=== PATIENT | male | born 1980 | race Two or more races ===

== ENCOUNTER 2019-02-17 11:31 | Emergency (ER) | payer OTHER ==
[~2019-02-17] VITALS: Ht 167.6 cm; Wt 86.2 kg
[2019-02-17 11:41] VITALS: BP 117/78
== END 2019-02-17 12:32 | disposition home or self-care (01) ==
LOC: ER 11:31
DX: S80.12XA Contusion of left lower leg, initial encounter (principal); W23.0XXA Caught, crushed, jammed, or pinched between moving objects, initial encounter; Y93.89 Activity, other specified; Y99.8 Other external cause status; Y92.89 Other specified places as the place of occurrence of the external cause
CPT/HCPCS: 93971

== ENCOUNTER 2019-04-18 17:14 | Inpatient (IN) | payer BC ==
[~2019-04-18] VITALS: Ht 165.1 cm; Wt 79.7 kg
[2019-04-18] MEDS ORDERED: SODIUM CHLORIDE 0.9% 500 ML IVB ONE (18:30)
[2019-04-18] MEDS ORDERED: PANTOPRAZOLE 40 MG/10 ML VIAL INJ IV STA (18:30)
[2019-04-18] MEDS ORDERED: ONDANSETRON HCL 4 MG/2 ML VIAL IV ONE (18:30)
[2019-04-18 18:31] LABS: Urine Bacteria NONE SEEN /hpf (None Seen); Urine Blood Negative /uL (Negative); Urine Mucus MODERATE (None Seen); Urine Specific Gravity 1.031 (1.001-1.035); Urine WBC 2 /hpf (0 - 3)
[2019-04-18 18:33] LABS: Basophils # (auto) 0 uL; Basophils % (auto) 0.4 % (0.0-2.0); Eosinophils # (auto) 0.3 uL; Eosinophils % (auto) 3.9 % (0.0-7.0); Hematocrit 50.3 % (41.0-53.0); Hemoglobin 17.3 g/dL (13.5-17.5); Lymphocytes # (auto) 1.2 uL; Lymphocytes % (auto) 15.3 % (10.0-50.0); Mean Corpuscular Hgb Conc. 34.3 g/dL (32.0-36.0); Mean Corpuscular Volume 84.5 fL (80.0-100.0); Monocytes % (auto) 12.4 % (0.0-12.0); Neutrophils # (auto) 5.5 uL; Nucleated Red Blood Cells % 0.1 %; Platelet Count (auto) 269 10^3/uL (140-450); Red Blood Cells 5.95 10^6/uL (4.5-5.90); Red Cell Distribution Width 13.2 % (11.8-14.3); White Blood Cell 8.1 10^3/uL (4.4-10.8)
[2019-04-18 18:55] LABS: Albumin 3.9 g/dL (3.4-5.0); Calcium 8.5 mg/dL (8.5-10.1)
[2019-04-18 18:58] LABS: BUN/Creatinine Ratio 15.9; Bilirubin, Total 0.5 mg/dL (0.2-1.0); Total Protein 8.2 g/dL (6.4-8.2)
[2019-04-18] MEDS ORDERED: metroNIDAZOLE 500MG/100ML 100 ML IV ONE (19:30)
[2019-04-18] MEDS ORDERED: MORPHINE SULFATE 4 MG/ML SYR/VIAL IV ONE (19:30)
[2019-04-18] MEDS ORDERED: ONDANSETRON HCL 4 MG/2 ML VIAL IV PRN (22:00)
[2019-04-18] MEDS ORDERED: TEMAZEPAM 15 MG CAP PO PRN (22:00)
[2019-04-18] MEDS ORDERED: MORPHINE SULFATE 4 MG/ML SYR/VIAL IV PRN (22:00)
[2019-04-18] MEDS ORDERED: ACETAMINOPHEN 325 MG TAB PO PRN (22:00)
[2019-04-18] MEDS ORDERED: HYDROcodone-ACET 5/325MG TAB PO PRN (22:00)
[2019-04-18] MEDS: metroNIDAZOLE 500MG/100ML 100 ML IV SCH (22:36)
[2019-04-18] MEDS: FAMOTIDINE 20 MG TAB PO SCH (22:36)
[2019-04-19 02:30] VITALS: BP 118/78
--- NOTE | 2019-04-19 02:30 | NUR ---
MS admit from ER SUDHIR OCASIO admitted to tele/MS after SBAR received. Patient oriented to Meme Amin, primary RN, unit, room, bed, and unit policies regarding patient care and visiting hours. Patient weighed by bedscale and encouraged to call if they need something. All questions and concerns addressed, patient verbalized understanding. Note:
[2019-04-19 05:00] VITALS: BP 117/71
[2019-04-19] MEDS: metroNIDAZOLE 500MG/100ML 100 ML IV SCH ×3 (05:30→21:46)
[2019-04-19 06:57] LABS: Basophils # (auto) 0 uL; Basophils % (auto) 0.5 % (0.0-2.0); Eosinophils # (auto) 0.4 uL; Eosinophils % (auto) 5.1 % (0.0-7.0); Hematocrit 42.2 % (41.0-53.0); Hemoglobin 14.2 g/dL (13.5-17.5); Lymphocytes # (auto) 2.1 uL; Lymphocytes % (auto) 29.7 % (10.0-50.0); Mean Corpuscular Hemoglobin 28.5 pg (28.0-32.0); Mean Corpuscular Hgb Conc. 33.6 g/dL (32.0-36.0); Mean Corpuscular Volume 84.9 fL (80.0-100.0); Monocytes # (auto) 0.8 uL; Monocytes % (auto) 12.1 % (0.0-12.0); Neutrophils # (auto) 3.6 uL; Neutrophils % (auto) 52.6 % (37.0-80.0); Nucleated Red Blood Cells % 0.1 %; Platelet Count (auto) 238 10^3/uL (140-450); Red Blood Cells 4.97 10^6/uL (4.5-5.90); White Blood Cell 6.9 10^3/uL (4.4-10.8)
[2019-04-19 07:15] LABS: Calcium 8.1 mg/dL (8.5-10.1); Potassium 3.8 mmol/L (3.5-5.1)
[2019-04-19 07:17] LABS: BUN/Creatinine Ratio 13.7
[2019-04-19] MEDS ORDERED: GASTROGRAFIN 120 ML SOL ONE (08:17)
[2019-04-19 09:00] VITALS: BP 106/68
[2019-04-19] MEDS: cefTRIAXone 1GM/50ML D5W 50 ML IV SCH (09:41)
[2019-04-19] MEDS: FAMOTIDINE 20 MG TAB PO SCH ×2 (09:41→21:45)
[2019-04-19 13:00] VITALS: BP 120/75
[2019-04-19] MEDS: SODIUM CHLORIDE 0.9% 1,000 ML IV SCH (15:31)
[2019-04-19 17:00] VITALS: BP 107/86
--- NOTE | 2019-04-19 19:10 | NUR ---
Opening Shift Note Received report from barbara Berry RN. Assumed care of patient, awake and alert. Family at bedside. Patient is eating dinner with soft diet. No S/S of distress/SOB or pain. Instructed on POC and to call for assist PRN, will continue to monitor for changes Q1hr and PRN. Bed placed in lowest position, and call light within reach.
[2019-04-19 22:00] VITALS: BP 121/79
[2019-04-20] MEDS: SODIUM CHLORIDE 0.9% 1,000 ML IV SCH ×3 (04:34→21:30)
[2019-04-20 05:00] VITALS: BP 119/69
[2019-04-20] MEDS: metroNIDAZOLE 500MG/100ML 100 ML IV SCH ×3 (05:30→21:45)
--- NOTE | 2019-04-20 07:45 | NUR ---
Patient in bed, awake, oriented x4, no acute distress noted.
[2019-04-20 07:56] LABS: Basophils # (auto) 0 uL; Basophils % (auto) 0.5 % (0.0-2.0); Eosinophils # (auto) 0.1 uL; Eosinophils % (auto) 1.7 % (0.0-7.0); Hematocrit 36.4 % (41.0-53.0); Hemoglobin 12.3 g/dL (13.5-17.5); Lymphocytes # (auto) 1.4 uL; Lymphocytes % (auto) 18.9 % (10.0-50.0); Mean Corpuscular Hemoglobin 29.2 pg (28.0-32.0); Mean Corpuscular Hgb Conc. 33.7 g/dL (32.0-36.0); Mean Corpuscular Volume 86.8 fL (80.0-100.0); Monocytes # (auto) 0.8 uL; Monocytes % (auto) 10.2 % (0.0-12.0); Neutrophils # (auto) 5.1 uL; Neutrophils % (auto) 68.7 % (37.0-80.0); Platelet Count (auto) 251 10^3/uL (140-450); Red Cell Distribution Width 14.6 % (11.8-14.3); White Blood Cell 7.4 10^3/uL (4.4-10.8)
[2019-04-20 08:18] LABS: Calcium 8.4 mg/dL (8.5-10.1); Potassium 3.5 mmol/L (3.5-5.1)
[2019-04-20 08:20] LABS: BUN/Creatinine Ratio 17.2
[2019-04-20] MEDS: cefTRIAXone 1GM/50ML D5W 50 ML IV SCH (08:31)
[2019-04-20 09:00] VITALS: BP 111/81
[2019-04-20] MEDS: FAMOTIDINE 20 MG TAB PO SCH ×2 (09:59→21:46)
--- NOTE | 2019-04-20 11:20 | NUR ---
Patient stated he had loose stools twice today.
--- NOTE | 2019-04-20 11:23 | NUR ---
Patient asked to be unhooked from the NS drip, stated he will go downstairs to smoke. Family at bedside. Signed AMA form to smoke in the patient's chart. Informed the patient it's raining outside.
--- NOTE | 2019-04-20 11:30 | NUR ---
Dr. Mcghee came over. Patient off unit to smoke downstairs. Patient has signed AMA form to smoke off unit.
--- NOTE | 2019-04-20 12:55 | NUR ---
Patient asked when is the doctor coming over. Informed the patient that Dr. Mcghee came over this morning to see him but he's off unit to smoke downstairs.
[2019-04-20 13:00] VITALS: BP 151/74
--- NOTE | 2019-04-20 15:08 | NUR ---
Patient off unit. Signed AMA form to smoke in the patient's chart.
--- NOTE | 2019-04-20 15:41 | NUR ---
Cecilio Rosenbaum came over but patient is off unit. made aware patient has signed AMA form to smoke downstairs. Dr. Brewer said there's no recommended GI procedure, advance diet as tolerated.
--- NOTE | 2019-04-20 16:10 | NUR ---
Patient back to room. Informed patient that Cecilio Rosenbaum came over but he was off unit to smoke; no recommended procedure as per GI. Family at bedside.
--- NOTE | 2019-04-20 16:10 | NUR ---
Patient stated he has no loose stools after lunch.
[2019-04-20 17:00] VITALS: BP 133/76
--- NOTE | 2019-04-20 19:20 | NUR ---
Opening Shift Note Received report from barbara Lynch RN. Assumed care of patient, awake and alert. Patient is eating dinner with family at bedside. No S/S of distress/SOB or pain. Instructed on POC and to call for assist PRN, will continue to monitor for changes Q1hr and PRN. Bed placed in lowest position, and call light within reach.
--- NOTE | 2019-04-20 20:30 | NUR ---
PATIENT IS COMPLAINING OF EPIGASTRIC PAIN. OFFERED PAIN MEDICATION BUT PATIENT REFUSED. WILL MONITOR
[2019-04-20 22:00] VITALS: BP 109/64
[2019-04-21 05:00] VITALS: BP 111/74
[2019-04-21] MEDS: metroNIDAZOLE 500MG/100ML 100 ML IV SCH (05:51)
[2019-04-21 07:36] LABS: BUN/Creatinine Ratio 12.3; Calcium 7.8 mg/dL (8.5-10.1); Potassium 4.4 mmol/L (3.5-5.1)
--- NOTE | 2019-04-21 07:55 | NUR ---
Patient in bed, awake, oriented x4. No acute distress noted. Informed the patient to wait for the doctor. Patient has signed AMA to smoke off unit. Patient said he will not go downstairs, he will wait for the doctor.
[2019-04-21] MEDS: SODIUM CHLORIDE 0.9% 1,000 ML IV SCH (08:19)
[2019-04-21] MEDS: cefTRIAXone 1GM/50ML D5W 50 ML IV SCH (08:19)
[2019-04-21 09:00] VITALS: BP 125/73
[2019-04-21] MEDS: FAMOTIDINE 20 MG TAB PO SCH (09:14)
--- NOTE | 2019-04-21 10:00 | NUR ---
Patient is upset that the doctor came over and will discharge him today when he's still hurting on his stomach. Explained to patient that Cecilio Rosenbaum is a stomach specialist and as of this time there's no recommendation for any GI test or procedure. patient also stated that the doctor wants him to quit smoking. Patient stated he smokes Marijuana.
--- NOTE | 2019-04-21 12:34 | NUR ---
Dr. Mcghee has seen the patient. to put in discharge orders.
[2019-04-21 12:45] VITALS: BP 125/73
[2019-04-21 12:50] VITALS: BP 125/73
--- NOTE | 2019-04-21 14:05 | NUR ---
Discharge instructions given as ordered. Encourage to follow up with PMD as instructed. All questions and concerns addressed. Patient verbalized understanding. Medication reconciliation form completed and copy given to patient. Prescription and doctor's notes given to patient. IV removed with catheter intact, pressure dressing applied. Patient is ambulatory, refused to be taken to vehicle via wheelchair, patient with all personal belongings, accompanied by family members. No distress noted at time of departure.
== END 2019-04-21 14:05 | disposition home or self-care (01) | DRG 389 ==
LOC: ER 17:21 → OVERFLOW 17:22 → EAST 04-19 02:10
PROVIDERS: ADMIT Nurse Practitioner; ATTEND Internal Medicine
DX: K56.699 Other intestinal obstruction unspecified as to partial versus complete obstruction (principal); K57.32 Diverticulitis of large intestine without perforation or abscess without bleeding; E66.9 Obesity, unspecified; Z68.29 Body mass index [BMI] 29.0-29.9, adult; F12.90 Cannabis use, unspecified, uncomplicated; F17.210 Nicotine dependence, cigarettes, uncomplicated; Z90.49 Acquired absence of other specified parts of digestive tract; Z82.49 Family history of ischemic heart disease and other diseases of the circulatory system
CPT/HCPCS: 36415; 74176; 74250; 80048; 80053; 81001; 83690; 85025; 87040; C9113; G0378; J0696; J2405; J3490

== ENCOUNTER 2019-05-31 15:00 | Inpatient (IN) | payer BC ==
[~2019-05-31] VITALS: Ht 162.6 cm; Wt 96.7 kg
[2019-05-31 15:41] LABS: Urine Bacteria NONE SEEN /hpf (None Seen); Urine Blood Negative /uL (Negative); Urine Hyaline Cast FEW /lpf (0 - 2); Urine Mucus MODERATE (None Seen); Urine Specific Gravity 1.032 (1.001-1.035); Urine WBC 1 /hpf (0 - 3)
[2019-05-31 16:04] LABS: Basophils # (auto) 0.1 uL; Basophils % (auto) 0.4 % (0.0-2.0); Eosinophils # (auto) 0.3 uL; Eosinophils % (auto) 2.8 % (0.0-7.0); Hematocrit 46.7 % (41.0-53.0); Hemoglobin 15.5 g/dL (13.5-17.5); Lymphocytes # (auto) 1.8 uL; Lymphocytes % (auto) 15.8 % (10.0-50.0); Mean Corpuscular Hemoglobin 28.2 pg (28.0-32.0); Mean Corpuscular Hgb Conc. 33.3 g/dL (32.0-36.0); Mean Corpuscular Volume 84.7 fL (80.0-100.0); Monocytes # (auto) 0.8 uL; Monocytes % (auto) 7.2 % (0.0-12.0); Neutrophils # (auto) 8.4 uL; Neutrophils % (auto) 73.8 % (37.0-80.0); Nucleated Red Blood Cells % 0.1 %; Platelet Count (auto) 281 10^3/uL (140-450); Red Blood Cells 5.51 10^6/uL (4.5-5.90); Red Cell Distribution Width 13.4 % (11.8-14.3); White Blood Cell 11.4 10^3/uL (4.4-10.8)
[2019-05-31 16:23] LABS: Albumin 3.6 g/dL (3.4-5.0); Potassium 4.2 mmol/L (3.5-5.1)
[2019-05-31 16:26] LABS: BUN/Creatinine Ratio 13.8; Bilirubin, Total 0.4 mg/dL (0.2-1.0); Total Protein 7.5 g/dL (6.4-8.2)
[2019-05-31] MEDS ORDERED: IOHEXOL 300 MG/ML 100ML BOTTLE IJ ONE (16:52)
[2019-05-31] MEDS ORDERED: metroNIDAZOLE 500MG/100ML 100 ML IV ONE (18:00)
[2019-05-31] MEDS ORDERED: SODIUM CHLORIDE 0.9% 1,000 ML IV ONE (20:00)
[2019-05-31] MEDS ORDERED: ONDANSETRON HCL 4 MG/2 ML VIAL IV PRN (20:00)
[2019-05-31] MEDS ORDERED: NITROGLYCERIN 0.4 MG SL TAB SL PRN (20:00)
[2019-05-31] MEDS ORDERED: MORPHINE SULF INJ 2 MG/ML SYRINGE 1ML IV PRN (20:00)
[2019-05-31 21:13] VITALS: BP 117/89
--- NOTE | 2019-05-31 21:15 | NUR ---
MS admit from ER SUDHIR OCASIO admitted to tele/MS after SBAR received. Patient oriented to Sydnee Loyola, primary RN, unit, room, bed, and unit policies regarding patient care and visiting hours. Patient weighed by bed scale and encouraged to call if they need something. All questions and concerns addressed, patient verbalized understanding.
[2019-05-31 22:00] VITALS: BP 117/89
[2019-05-31] MEDS: METOCLOPRAMIDE HCL 5MG/ml INJ 2ml VIAL IV SCH (22:47)
[2019-05-31] MEDS: FAMOTIDINE (10MG/ML) 2ML VL IV SCH (22:47)
[2019-05-31] MEDS: HYDROCORTISONE SOD SUCC 100 MG/2ML INJ VIAL IV SCH (22:47)
[2019-06-01] MEDS: metroNIDAZOLE 500MG/100ML 100 ML IV SCH ×3 (04:02→18:33)
[2019-06-01 05:00] VITALS: BP 101/51
[2019-06-01] MEDS: METOCLOPRAMIDE HCL 5MG/ml INJ 2ml VIAL IV SCH (06:54)
--- NOTE | 2019-06-01 07:10 | NUR ---
ENDORSED PATIENT CARE TO DAY SHIFT NURSE KAROLINE GARNER. NO S/SX OF DISTRESS, SOB OR PAIN.
--- NOTE | 2019-06-01 07:30 | NUR ---
Opening Shift Note Assumed care of patient. Patient is awake and alert. No S/S of distress/SOB or pain. Instructed on POC and to call for assist. Bed locked in the lowest position. Bed rails up x2. Call light in reach. Will continue to monitor.
[2019-06-01 09:00] VITALS: BP 107/59
[2019-06-01] MEDS: HYDROCORTISONE SOD SUCC 100 MG/2ML INJ VIAL IV SCH (10:00)
[2019-06-01] MEDS: FAMOTIDINE (10MG/ML) 2ML VL IV SCH ×2 (10:12→21:27)
[2019-06-01 13:00] VITALS: BP 101/59
[2019-06-01] MEDS ORDERED: LEVOFLOXACIN 500MG 100 ML IV ONE (13:15)
[2019-06-01] MEDS ORDERED: MORPHINE SULFATE 4 MG/ML SYR/VIAL IV PRN (13:15)
[2019-06-01] MEDS ORDERED: HYDROcodone-ACET 5/325MG TAB PO PRN (13:15)
[2019-06-01] MEDS: SODIUM CHLORIDE 0.9% 1,000 ML IV SCH (13:29)
[2019-06-01] MEDS ORDERED: GOLYTELY 4L KIT PO ONE (14:30)
--- NOTE | 2019-06-01 16:00 | NUR ---
CONSENTS OBTAINED AND PLACED IN CHART.
[2019-06-01 17:00] VITALS: BP_SYST 107
[2019-06-01 17:30] VITALS: BP 107/64
--- NOTE | 2019-06-01 18:55 | NUR ---
CLOSING NOTE Patient is awake and alert. No S/S of distress/SOB or pain. Patient consuming [place]. Family at the bedside. Bed locked in the lowest position. Bed rails up x2. Call light in reach. Endorsed care to night KAROLINE Castro.
[2019-06-01 22:00] VITALS: BP 131/75
[2019-06-02] MEDS: SODIUM CHLORIDE 0.9% 1,000 ML IV SCH ×3 (02:32→20:00)
[2019-06-02] MEDS: metroNIDAZOLE 500MG/100ML 100 ML IV SCH ×2 (02:33→11:05)
[2019-06-02 05:00] VITALS: BP 98/58
[2019-06-02 06:06] LABS: Basophils # (auto) 0.1 uL; Basophils % (auto) 1.2 % (0.0-2.0); Eosinophils # (auto) 0.5 uL; Eosinophils % (auto) 8.1 % (0.0-7.0); Hematocrit 39.9 % (41.0-53.0); Hemoglobin 13.5 g/dL (13.5-17.5); Lymphocytes # (auto) 2.3 uL; Mean Corpuscular Hemoglobin 28.8 pg (28.0-32.0); Mean Corpuscular Hgb Conc. 33.8 g/dL (32.0-36.0); Mean Corpuscular Volume 85.2 fL (80.0-100.0); Monocytes # (auto) 0.7 uL; Neutrophils # (auto) 2.4 uL; Neutrophils % (auto) 40.7 % (37.0-80.0); Nucleated Red Blood Cells % 0.1 %; Platelet Count (auto) 245 10^3/uL (140-450); Red Blood Cells 4.68 10^6/uL (4.5-5.90); Red Cell Distribution Width 13.4 % (11.8-14.3); White Blood Cell 5.9 10^3/uL (4.4-10.8)
[2019-06-02 06:17] LABS: INR 1.23 (0.9-1.15); Partial Thromboplastin Time 28.3 sec (23.64-32.05)
[2019-06-02 06:25] LABS: BUN/Creatinine Ratio 11.4; Calcium 8.4 mg/dL (8.5-10.1); Potassium 3.9 mmol/L (3.5-5.1)
--- NOTE | 2019-06-02 06:45 | NUR ---
PATIENT REPORTS YELLOW LIQUID STOOLS WITH NO PARTICLES. SPOKE TO OR NURSE, PATIENT WANTED IN OR AT [phone]. WILL ENDORSE TO DAY SHIFT RN.
--- NOTE | 2019-06-02 07:35 | NUR ---
Opening Shift Note Assumed care of patient, awake and alert. No S/S of distress/SOB or pain. Instructed on POC and to call for assist PRN, will continue to monitor for changes Q1hr and PRN. Patient npo for EGD/Colonoscopy and patient is aware. Patient had his bm checked and noted to yellow and clear.
--- NOTE | 2019-06-02 08:05 | NUR ---
PATIENT BROUGHT DOWN TO PRE OP PER BED FOR EGD/ COLONOSCOPY IN A STABLE CONDITION. REPORT GIVEN TO PRE OP RN.
[2019-06-02] MEDS ORDERED: EPINEPHrine HCL 1 MG/10 ML SYRG ONE (08:21)
[2019-06-02] MEDS ORDERED: ONDANSETRON HCL 4 MG/2 ML VIAL IV PRN (09:00)
[2019-06-02] MEDS ORDERED: NALOXONE HCL 0.4 MG/ML VIAL IV PRN (09:00)
[2019-06-02] MEDS ORDERED: HYDROmorphone HCL 2 MG/ML VL IV PRN ×2 (09:00)
[2019-06-02] MEDS ORDERED: MIDAZOLAM HCL 1MG/1ML-2 ML VIAL ONE ×2 (09:08→09:26)
[2019-06-02] MEDS ORDERED: LIDOCAINE 1% (LOCAL ANESTH.) PF 5ml SDV ONE (09:10)
[2019-06-02] MEDS ORDERED: diphenhdrAMINE HCL 50 MG/1 ML VL ONE (09:10)
[2019-06-02] MEDS ORDERED: PROPOFOL 10 MG/ML 20 ML IV ONE (09:10)
[2019-06-02] MEDS ORDERED: GLYCOPYRROLATE 0.2 MG/ML 1ML VIAL ONE (09:10)
[2019-06-02] MEDS ORDERED: KETAMINE HCL 10 ML ONE (09:16)
[2019-06-02] MEDS ORDERED: LEVOFLOXACIN 500MG 100 ML IV SCH (10:00)
--- NOTE | 2019-06-02 10:20 | NUR ---
PATIENT RETURNED TO RM 272-B PER BED ACCOMPANIED BY PACU RNS AND REPORT RECEIVED BY PHONE PRIOR TO PATIENT RETURNING TO THE FLOOR. PATIENT NOTED TO BE DROWSY AND WAS ASSISTED TO THE BATHROOM PATIENT WAS INSISTING ON IT. INSTRUCTED PATIENT TO USE CALL LIGHT WHEN DONE AND NOT TO GET UP ON HIS OWN.
--- NOTE | 2019-06-02 10:30 | NUR ---
PATIENT ASSISTED BACK TO BED AND NOTED TO BE UNSTEADY ON HIS FEET. BED ALARM ACTIVATED AT THIS TIME. PATIENT NOTED TO BE SLEEPING AFTER. WILL CONTINUE TO MONITOR PATIENT.
[2019-06-02] MEDS: PANTOPRAZOLE 40 MG TAB PO SCH (11:02)
[2019-06-02] MEDS ORDERED: HYOSCYAMINE SULF 0.125 MG ODT TAB PO PRN (12:45)
[2019-06-02 13:00] VITALS: BP 118/71
[2019-06-02] MEDS ORDERED: GASTROGRAFIN 120 ML SOL ONE (13:57)
[2019-06-02 17:00] VITALS: BP 122/68
--- NOTE | 2019-06-02 18:20 | NUR ---
PATIENT WAS TALKING ABOUT GOING AMA AT THIS TIME PATIENT STATED THAT HE WAS FEELING BETTER. PATIENT DECIDED TO PATIENT THE BENEFIT OF STAYING AND THE RISKS OF GOING AMA.
[2019-06-02 22:00] VITALS: BP 142/71
[2019-06-03] MEDS: SODIUM CHLORIDE 0.9% 1,000 ML IV SCH (01:24)
[2019-06-03 05:00] VITALS: BP 116/62
--- NOTE | 2019-06-03 07:40 | NUR ---
Opening Shift Note Assumed care of patient, awake and alert. No S/S of distress/SOB or pain. Instructed on POC and to call for assist PRN, will continue to monitor for changes Q1hr and PRN.
[2019-06-03] MEDS ORDERED: InsuLIN REG 1unit/0.01ml Soln (100units/ml) ONE (07:42)
[2019-06-03] MEDS ORDERED: CALCIUM GLUC 4.65meq/50ml D5AE 0 ML IV ONE ×2 (07:42→07:50)
[2019-06-03 09:00] VITALS: BP_SYST 108; BP_SYST 147; BP_DIAS 75; BP_DIAS 84
[2019-06-03] MEDS: PANTOPRAZOLE 40 MG TAB PO SCH (10:10)
--- NOTE | 2019-06-03 10:15 | NUR ---
DR. BARROW WAS IN TO SEE PATIENT AND NO ORDERS MADE AT THIS TIME BUT DISCUSSED WITH PATIENT ABOUT DISCHARGING HIM TODAY WITH PRESCRIPTIONS THROUGH HIS PHARMACY.
[2019-06-03 12:35] VITALS: BP 129/74
[2019-06-03] MEDS ORDERED: DOCU-94 PO (12:59)
[2019-06-03] MEDS ORDERED: HYOS0.1297 PO (12:59)
[2019-06-03] MEDS ORDERED: LACT10SO3 PO (12:59)
[2019-06-03] MEDS ORDERED: PANT40T PO (12:59)
[2019-06-03] MEDS ORDERED: MET500T PO (12:59)
[2019-06-03] MEDS ORDERED: CIP500T PO (12:59)
[2019-06-03 14:43] VITALS: BP 129/74
[2019-06-03 17:00] VITALS: BP 152/86
== END 2019-06-03 15:45 | disposition home or self-care (01) | DRG 392 ==
LOC: ER 15:00 → OVERFLOW 15:01 → WEST WING 21:08
PROVIDERS: ADMIT Nurse Practitioner Acute Care; ATTEND Hospitalist
PROC: 0DB68ZX Excision of Stomach, Via Natural or Artificial Opening Endoscopic, Diagnostic (ICD-10-PCS; principal; 2019-06-02 09:07)
PROC: 0DBB8ZX Excision of Ileum, Via Natural or Artificial Opening Endoscopic, Diagnostic (ICD-10-PCS; 2019-06-02 09:07)
DX: K57.30 Diverticulosis of large intestine without perforation or abscess without bleeding (principal); K56.600 Partial intestinal obstruction, unspecified as to cause; K29.80 Duodenitis without bleeding; K21.9 Gastro-esophageal reflux disease without esophagitis; K44.9 Diaphragmatic hernia without obstruction or gangrene; K43.9 Ventral hernia without obstruction or gangrene; F12.10 Cannabis abuse, uncomplicated; K27.9 Peptic ulcer, site unspecified, unspecified as acute or chronic, without hemorrhage or perforation; K29.70 Gastritis, unspecified, without bleeding; K58.9 Irritable bowel syndrome, unspecified; Z12.11 Encounter for screening for malignant neoplasm of colon; Z83.3 Family history of diabetes mellitus; Z87.891 Personal history of nicotine dependence; Z90.49 Acquired absence of other specified parts of digestive tract; Z79.899 Other long term (current) drug therapy
CPT/HCPCS: 36415; 74177; 80048; 80053; 81001; 83690; 85025; 85610; 85730; 86850; 86900; 86901; G0378; J0610; J1815; J1956; J2250; J2704; J3490

== ENCOUNTER 2023-08-02 16:15 | Emergency (ER) | payer BC ==
[~2023-08-02] VITALS: Ht 165.1 cm; Wt 80.7 kg
[~2023-08-02 16:15] MED LIST: CIP500T PO; DOCU-94 PO; HYOS0.1289 PO; LACT10SO3 PO; MET500T PO; PANT40T PO
[2023-08-02 16:39] VITALS: BP 101/64; PULSE 79; RESP 16; O2SAT 99
[2023-08-02] MEDS ORDERED: HYDR-4798 PO (22:55)
[2023-08-02] MEDS ORDERED: IBUP-1456 PO (22:55)
== END 2023-08-02 19:53 | disposition left against medical advice (07) ==
LOC: ER 16:15
DX: M25.512 Pain in left shoulder (principal); R51.9 Headache, unspecified; Z53.21 Procedure and treatment not carried out due to patient leaving prior to being seen by health care provider; V89.2XXA Person injured in unspecified motor-vehicle accident, traffic, initial encounter; Y93.89 Activity, other specified; Y92.89 Other specified places as the place of occurrence of the external cause; Y99.8 Other external cause status
CPT/HCPCS: 70450; 71046; 72040; 73030

== ENCOUNTER 2023-08-02 21:30 | Emergency (ER) | payer BC ==
[2023-08-02 21:43] VITALS: BP 121/80; PULSE 71; RESP 18; TEMP 97.5
[2023-08-02 22:43] VITALS: O2SAT 99
[2023-08-02] MEDS ORDERED: IBUP-1456 PO (22:55)
[2023-08-02] MEDS ORDERED: HYDR-4798 PO (22:55)
== END 2023-08-02 23:24 | disposition home or self-care (01) ==
LOC: ER 21:30
DX: S42.002A Fracture of unspecified part of left clavicle, initial encounter for closed fracture (principal); F15.90 Other stimulant use, unspecified, uncomplicated; Z98.890 Other specified postprocedural states; Z87.891 Personal history of nicotine dependence; Z79.899 Other long term (current) drug therapy; V86.99XA Unspecified occupant of other special all-terrain or other off-road motor vehicle injured in nontraffic accident, initial encounter; Y93.89 Activity, other specified; Y92.89 Other specified places as the place of occurrence of the external cause; Y99.8 Other external cause status

== ENCOUNTER 2023-08-05 13:34 | Emergency (ER) | payer BC ==
[~2023-08-05] VITALS: Ht 165.1 cm; Wt 85.0 kg
[~2023-08-05 13:34] MED LIST changes: +HYDR-4798 PO; +IBUP-1456 PO
[2023-08-05] MEDS: DexAMETHasone SOD PHOS 10MG/1ML VIAL INJ IM ONE (14:38)
[2023-08-05] MEDS: DICYCLOMINE HCL (10MG/ML) 2 ML AMPULE IM ONE (14:38)
[2023-08-05 14:39] VITALS: BP 132/94; PULSE 83; RESP 18; O2SAT 98
[2023-08-05] MEDS: ONDANSETRON ODT 4 MG TAB PO ONE (14:39)
== END 2023-08-06 02:58 | disposition left against medical advice (07) ==
LOC: ER 13:34
DX: J39.8 Other specified diseases of upper respiratory tract (principal); R05.9 Cough, unspecified; F15.90 Other stimulant use, unspecified, uncomplicated; Z98.890 Other specified postprocedural states; Z87.891 Personal history of nicotine dependence
CPT/HCPCS: 71045; 96372; 99284; J0500; J1100; Q0162